=== PATIENT | female | born 1985 | race Caucasian/White ===

== ENCOUNTER 2024-05-21 05:18 | Inpatient (IN) | payer MEDICAID, SELFPAY ==
[2024-05-21] VITALS (25 sets, daily range): BP systolic 113–166; BP diastolic 66–94; PULSE 79–92; RESP 13–18; TEMP 36.2–36.8; O2SAT 96–99; BMI 34.7
[2024-05-21] MEDS: Lactated Ringers 1,000 ML 999 ML IV (05:45)
[2024-05-21 06:01] LABS: Absolute Lymphocyte Count 2.07 X10^3/uL (0.83-4.51); Absolute Neutrophil Count 5.8 X10^3/uL (2.0-7.7); Basophil# 0.04 X10^3/uL; Basophil% 0.4 % (0-1); Eosinophil# 0.19 X10^3/uL; Eosinophils% 2.1 % (0-5); Hematocrit 36.1 % (37-47); Hemoglobin 11.8 g/dL (12.0-15.0); Lymphocyte # 2.07 X10^3/ul (0.83-4.51); Lymphocyte % 22.9 % (19-41); Mean Corp Hgb Conc 32.7 g/dL (32-36); Mean Corpuscular Hgb 26.4 pg (27.0-32.0); Mean Corpuscular Volume 80.8 fL (81-99); Mean Platelet Vol. 11.3 fl (6.2-12.0); Monocyte# 0.86 X10^3/uL; Monocyte% 9.5 % (0-10); NRBC Flagged by Analyzer 0 % (0-5); Neutrophil # 5.81 X10^3/uL (2.7-7.7); Neutrophil % 64.4 % (47-70); Platelet Count 190 K/mm3 (150-450); RBC Distribution Width CV 15.9 % (11.6-14.6); RBC Distribution Width SD 46.4 fl (35.1-43.9); Red Blood Count 4.47 M/mm3 (4.2-5.4)
[2024-05-21 06:09] LABS: Bedside Glucose 104 mg/dL (74-106)
[2024-05-21] MEDS: Acetaminophen 500 MG Tablet 1000 MG PO ×3 (06:12→18:31)
[2024-05-21] MEDS: Sodium Citrate/Citric Acid 30 ML UDC PO (06:34)
[2024-05-21] MEDS: NIFEdipine 10 MG Capsule PO (06:34)
[2024-05-21] MEDS: Magnesium Sulfate 4gm/100mL 4 GM/100 ML IV.SOLN. IV ×2 (06:53→09:10)
[2024-05-21] MEDS: Lactated Ringers 1,000 ML 150 ML IV (06:53)
[2024-05-21 06:57] LABS: ALB/GLOB Ratio 0.7 RATIO (0.9-2.4); AST(SGOT) 16 U/L (15-37); Alanine Aminotransfer ALT/SGPT 14 U/L (13-56); Albumin, Serum 2.7 g/dL (3.2-5.0); Alkaline Phosphatase 170 U/L (45-117); Anion Gap 8 (5-15); BUN 11 mg/dL (7-18); BUN/Creat Ratio 16.9 RATIO (10-20); Calcium,Total 9.2 mg/dL (8.5-10.1); Chloride 110 mmol/L (98-107); Creatinine, Serum 0.65 mg/dL (0.55-1.02); EST Glomerular Filtration Rate 107 mL/min (>60); Est Glom Filt Rate - Afr Amer 130 mL/min (>60); Estimated Creatinine Clearance 145.03 ml/min; Globulin 3.7 g/dL (2.2-4.2); Glucose 103 mg/dL (74-106); Potassium 4.1 mmol/L (3.5-5.1); Protein, Total 6.4 g/dL (6.4-8.2); Sodium Level 138 mmol/L (136-145)
[2024-05-21] MEDS: NIFEdipine 10 MG Capsule 20 MG PO (07:03)
[2024-05-21] MEDS: Magnesium Sulfate 4gm/100mL 2 GM/50 ML IV.SOLN. IV (07:14)
[2024-05-21] MEDS: Cefazolin 2 GM in Syringe IV (07:45)
[2024-05-21 08:33] LABS: Syphilis Antibodies Non-reactive
[2024-05-21] MEDS: Oxytocin 15 Units/NS 250ml 15 UNITS/250 ML IV.SOLN 83 UNITS IV (09:15)
[2024-05-21] MEDS: Magnesium Sulfate 20 GM/500 ML BAG IV ×2 (09:30→19:11)
[2024-05-21 11:28] LABS: Bedside Glucose 141 mg/dL (74-106)
[2024-05-21] MEDS: Ketorolac 30 MG/ML Syringe IV ×2 (13:09→18:31)
[2024-05-21 14:39] LABS: Pathology Specimen OB SEE PATHOLOGY REPORT
[2024-05-21] MEDS: Senna/Docusate Sodium 1 Tablet PO (14:53)
[2024-05-21] MEDS: Labetalol 200 MG Tablet PO (14:53)
[2024-05-21] MEDS: NIFEdipine 30 MG Tablet PO (14:54)
[2024-05-21] MEDS: Enoxaparin 40 MG/0.4 ML Syringe SC (19:55)
[2024-05-22] VITALS (13 sets, daily range): BP systolic 109–153; BP diastolic 67–81; PULSE 79–93; RESP 15–18; TEMP 36.4–36.7; O2SAT 98–99
[2024-05-22] MEDS: Ketorolac 30 MG/ML Syringe IV ×2 (00:23→06:18)
[2024-05-22] MEDS: Acetaminophen 500 MG Tablet 1000 MG PO ×4 (00:24→18:57)
[2024-05-22 05:29] LABS: Bedside Glucose 208 mg/dL (74-106)
[2024-05-22] MEDS: Labetalol 200 MG Tablet PO ×3 (06:18→22:12)
[2024-05-22] MEDS: Levothyroxine 100 MCG Tablet 200 MCG PO (06:18)
[2024-05-22 06:37] LABS: Hematocrit 34.9 % (37-47); Hemoglobin 11.1 g/dL (12.0-15.0); Mean Corp Hgb Conc 31.8 g/dL (32-36); Mean Corpuscular Hgb 26.4 pg (27.0-32.0); Mean Corpuscular Volume 82.9 fL (81-99); Mean Platelet Vol. 11.5 fl (6.2-12.0); Platelet Count 203 K/mm3 (150-450); RBC Distribution Width CV 16.1 % (11.6-14.6); RBC Distribution Width SD 49.2 fl (35.1-43.9); Red Blood Count 4.21 M/mm3 (4.2-5.4); White Blood Count 9.3 K/mm3 (4.4-11.0)
[2024-05-22] MEDS: Insulin NPH Human 100 UNITS/ML PEN SC ×2 (08:22→17:04)
[2024-05-22] MEDS: Insulin Lispro 100 UNIT/ML INSULN.PEN SC ×3 (08:54→17:03)
[2024-05-22] MEDS: NIFEdipine 30 MG Tablet PO (08:55)
[2024-05-22 12:06] LABS: Bedside Glucose 145 mg/dL (74-106)
[2024-05-22] MEDS: Ibuprofen 600 MG Tablet PO ×2 (13:32→18:56)
[2024-05-22] MEDS: oxyCODONE 5 MG Tablet PO ×2 (14:29→22:11)
[2024-05-22] MEDS: 0.9% Saline Lock 10 ML Syringe IV (17:04)
[2024-05-22 17:06] LABS: Bedside Glucose 128 mg/dL (74-106)
[2024-05-22] MEDS: Enoxaparin 40 MG/0.4 ML Syringe SC (20:42)
[2024-05-22 22:35] LABS: Bedside Glucose 118 mg/dL (74-106)
[2024-05-23 00:10] VITALS: BP 142/66; RESP 16
[2024-05-23] MEDS: Acetaminophen 500 MG Tablet 1000 MG PO ×4 (01:11→19:28)
[2024-05-23] MEDS: Ibuprofen 600 MG Tablet PO ×4 (01:11→19:29)
[2024-05-23 04:07] VITALS: BP 152/76; PULSE 90; RESP 16
[2024-05-23 05:50] VITALS: BP 136/71; PULSE 87; RESP 16; TEMP 36.6; O2SAT 98
[2024-05-23] MEDS: Labetalol 200 MG Tablet PO ×3 (06:01→21:41)
[2024-05-23] MEDS: oxyCODONE 5 MG Tablet PO ×4 (06:01→20:54)
[2024-05-23] MEDS: Levothyroxine 100 MCG Tablet 200 MCG PO (06:01)
[2024-05-23 08:37] LABS: Bedside Glucose 86 mg/dL (74-106)
[2024-05-23] MEDS: Insulin Lispro 100 UNIT/ML INSULN.PEN SC ×2 (08:50→12:19)
[2024-05-23 08:57] VITALS: BP 160/80; PULSE 80; RESP 16; TEMP 36.3
[2024-05-23] MEDS: NIFEdipine 60 MG Tablet PO (10:19)
[2024-05-23 12:43] LABS: Bedside Glucose 98 mg/dL (74-106)
[2024-05-23 13:37] VITALS: BP 142/71; PULSE 86; RESP 16; TEMP 36.3; O2SAT 98
[2024-05-23 17:49] LABS: Bedside Glucose 66 mg/dL (74-106)
[2024-05-23] MEDS: Enoxaparin 40 MG/0.4 ML Syringe SC (20:54)
[2024-05-23 20:59] VITALS: BP 154/69; PULSE 78; RESP 20; TEMP 36.9; O2SAT 99
[2024-05-23 22:02] LABS: Bedside Glucose 65 mg/dL (74-106)
[2024-05-23 22:21] LABS: Bedside Glucose 64 mg/dL (74-106)
[2024-05-23 22:40] LABS: Bedside Glucose 97 mg/dL (74-106)
[2024-05-24] MEDS: Ibuprofen 600 MG Tablet PO ×2 (01:13→07:11)
[2024-05-24] MEDS: Acetaminophen 500 MG Tablet 1000 MG PO ×2 (01:14→07:11)
[2024-05-24] MEDS: oxyCODONE 5 MG Tablet PO ×2 (01:14→07:14)
[2024-05-24 01:16] VITALS: BP 146/72; PULSE 81; RESP 20; TEMP 36.6; O2SAT 97
[2024-05-24 04:38] VITALS: BP 142/63; RESP 20
[2024-05-24] MEDS: Levothyroxine 100 MCG Tablet 200 MCG PO (06:26)
[2024-05-24] MEDS: Labetalol 200 MG Tablet PO (06:26)
[2024-05-24 08:14] VITALS: BP 148/71; PULSE 81; RESP 14; TEMP 36.3; O2SAT 100
[2024-05-24 08:15] LABS: Bedside Glucose 149 mg/dL (74-106)
[2024-05-24] MEDS: Insulin Lispro 100 UNIT/ML INSULN.PEN SC (09:32)
[2024-05-24] MEDS: NIFEdipine 60 MG Tablet PO (09:32)
[2024-05-25 11:45] LABS: Bedside Glucose 54 mg/dL (74-106)
[2024-05-25 11:45] LABS: Bedside Glucose 51 mg/dL (74-106)
== END 2024-05-24 10:45 | disposition home or self-care (01) | DRG 540 ==
PROVIDERS: Admitting Provider Obstetrics & Gynecology; Referring Provider Obstetrics & Gynecology; Visit Provider Obstetrics & Gynecology
PROC: 10D00Z1 Extraction of Products of Conception, Low, Open Approach (ICD-10-PCS; CPT 59514; principal; 2024-05-21 07:00)
DX: O10.02 Pre-existing essential hypertension complicating childbirth (principal); O11.4 Pre-existing hypertension with pre-eclampsia, complicating childbirth; O24.12 Pre-existing type 2 diabetes mellitus, in childbirth; O60.14X0 Preterm labor third trimester with preterm delivery third trimester, not applicable or unspecified; E03.9 Hypothyroidism, unspecified; O99.214 Obesity complicating childbirth; Z79.4 Long term (current) use of insulin; O34.212 Maternal care for vertical scar from previous cesarean delivery; D25.2 Subserosal leiomyoma of uterus; K66.0 Peritoneal adhesions (postprocedural) (postinfection); Z79.890 Hormone replacement therapy; Z80.0 Family history of malignant neoplasm of digestive organs; Z37.0 Single live birth; O34.13 Maternal care for benign tumor of corpus uteri, third trimester; O99.284 Endocrine, nutritional and metabolic diseases complicating childbirth; Z3A.36 36 weeks gestation of pregnancy; O99.893 Other specified diseases and conditions complicating puerperium
CPT/HCPCS: 59025; 80053; 82962; 85025; 85027; 86780; 86850; 86900; 86901; 88307; 99221; J7120; A4216; G0378; J2405